=== PATIENT | male | born 1965 | race Caucasian/White ===

== ENCOUNTER 2016-12-14 22:27 | Inpatient (IN) | payer OTHER ==
[~2016-12-14] VITALS: Ht 175.3 cm; Wt 86.1 kg
--- NOTE | ~2016-12-14 | ECHO ---
Transthoracic Echocardiography Report (TTE) Demographics Patient Name NIESHA HERMAN Date of Study 12/15/2016 Patient Number [id number] Visit Number [id number] Date of 1965 Room Number G6312 Gender Male Number Age 51 year(s) Referring Mariana Herrera Experimental Mechanic Electrical Junior Santoro RDCS, Physician RVT Tiffanie ESCOBAR Physician Interpreting Mariana Herrera Inspector Rough Castings Physician Supervising Ordering Mariana Herrera MD/MLP Physician Nurse Stress Student Union Consultant Conclusions Contractility Score Summary Normal Left Ventricular contractility was noted. Summary The estimated left ventricular ejection fraction is 60%. Normal wall thickness,internal dimension and EF despite moderate hypokinesia involving the basal third of the inferior wall. Trivial mitral regurgitation by color Doppler. Trivial tricuspid regurgitation by color Doppler. Procedure Type of Study TTE procedure:2D Echocardiogram. Procedure Date Date: 12/15/2016 Start: 07:48 AM Study Location: Inpatient Portable Technical Quality: Adequate visualization Indications:NSTEMI. Appropriate Use Criteria: 9 Patient Status: Routine HR: 66 bpm BP: 165/94 mmHg Allergies - No known allergies. M-Mode/2D Measurements LV Diastolic Dimension: 4.75 cm LV Systolic Dimension: 3.01 cm LV Septum Diastolic: 1.04 cm LV PW Diastolic: 1.02 cm Cardiac Output: 6.01 l/min LA Dimension: 3 cm LVOT: 2 cm LVOT VTI: 29 cm RV Base: 3.25 cm LV Stroke volume: 91.06 ml RV Length: 6.66 cm TAPSE: 2.29 cm TDI-S': 12.9 cm/s Doppler Measurements AV Peak Velocity: 1.39 m/s MV Peak E-Wave: 0.85 m/s AV Peak Gradient: 7.73 mmHg MV Peak A-Wave: 0.76 m/s LVOT Peak Velocity: 1.41 m/s MV E/A Ratio: 1.12 TR Velocity:1.5 m/s TR Gradient:9 mmHg MV Deceleration Time: 158 msec Estimated RAP:8 mmHg PV Peak Velocity: 1.04 m/s Estimated RVSP: 17 mmHg PV Peak Gradient: 4.33 mmHg E' Septal Velocity: 0.07 m/s Estimated PASP: 17 mmHg E' Lateral Velocity: 0.1 m/s A' Septal Velocity: 0.11 m/s A' Lateral Velocity: 0.14 m/s Findings Left Ventricle Normal wall thickness,internal dimension and EF despite moderate hypokinesia involving the basal third of the inferior wall. Diastolic assessment reveals normal relaxation. Right Ventricle Normal right ventricle structure and function. Left Atrium Normal left atrial size. Right Atrium Normal right atrial size. Mitral Valve Trivial mitral regurgitation by color Doppler. Aortic Valve Normal aortic valve structure and function. Tricuspid Valve Trivial tricuspid regurgitation by color Doppler. Pulmonic Valve Normal pulmonic valve structure and function. Pericardial Effusion No evidence of pericardial effusion. Miscellaneous Visualized portions of the aortic root and ascending aorta appear normal in size. Pleural Effusion No evidence of pleural effusion. Contractility Score LV regional wall motion:(0-Non visualized 1-Normal 2-Hypokinesis 3-Akinesis 4-Dyskinesis 5-Aneurysm) Signature dtt: Sharon Peña dtd: 12/15/16 0748 Physician Self Edit
--- NOTE | ~2016-12-14 | DS ---
PATIENT'S NAME: NIESHA HERMAN [facility] AGE: 51 Y [address] ROOM: [address] [address] LOCATION: GPCU ADMIT DATE: 12/14/2016 Discharge Summary DISCHARGE DATE: 12/17/2016 FAMILY PHYSICIAN: Ceci Moreno PA-C ATTENDING PHYSICIAN: Sharon Peña DISCHARGE DIAGNOSES: 1. Gqb-[id number] elevation myocardial infarction with normal left ventricular ejection fraction, treated with a drug-eluting stent to 99% occluded right coronary artery. 2. Left ventricular end-diastolic pressure of 15 mmHg. 3. Minimal luminal irregularities involving left main, LAD, and left circumflex. 4. Hypertension. 5. Chronic tobacco abuse. 6. Elevated cholesterol. 7. Family history of coronary artery disease in a premature fashion. 8. Alcoholism. The patient is drinking 3 beers at least a day. 9. Migraine headaches. 10. History of pancreatitis about a year ago. DISCHARGE MEDICATIONS: 1. Dexilant 60 mg a day. 2. Lisinopril and hydrochlorothiazide 20/25 once a day. 3. Aspirin 81 mg a day. 4. Atorvastatin 80 mg a day. 5. Metoprolol 12.5 mg 3 times a day. 6. Nicotine patch 14 mg a day. 7. Brilinta 90 mg twice a day. RECOMMENDATIONS: 1. Low-fat, low-cholesterol diet explained to the patient. 2. Regular exercise program including cardiac rehab explained to the patient. 3. Completely to stopping smoking with counseling given. COURSE IN THE HOSPITAL: The patient developed chest tightness, radiating to the back and into the neck and left side of the jaw, along with headache and sweating; and no ST changes were noted, but his enzymes were elevated. The patient was taken urgently to the labor representative after maintaining him pain-free when he was in the hospital, and a drug-eluting stent was placed. The patient's postprocedural course was unremarkable. The plan now is to have him completely stop smoking, control his blood pressure better, and have him on all appropriate therapy including DAPT for one whole year. He will be followed up in 2 weeks in the office as an outpatient. PATIENT'S NAME: NIESHA HERMAN [facility] AGE: 51 Y [address] ROOM: [address] [place] [id number] [facility] ADMIT DATE: 12/14/2016 Discharge Summary DISCHARGE DATE: 12/17/2016 FAMILY PHYSICIAN: Ceci Moreno PA-C ATTENDING PHYSICIAN: Sharon Peña MD SADA SCHILLING/annie /[id number] d: 12/26/16 2303 t: 01/04/17 1029, DISCHARGE SUMMARY
--- NOTE | ~2016-12-14 | CATH ---
Cardiac Diagnostic + PCI Report Demographics Patient Name BATSHEVA CAICEDO Gender Male Date of 1965 Age 51 year(s) Patient Number [id number] Date of Study 12/15/2016 Visit Number [id number] Room Number G6312 [place] [id number] Ht 175.26 cm Wt 83.01 kg Referring Mariana Primary Physician Physician Sharon JACKSON Performing Mariana Secondary Physician Physician Sharon JACKSON Diagnostic Mariana Assisting Physician Physician Sharon JACKSON Interventional Mariana Physician Search Strategist Physician Sharon JACKSON Findings and Conclusions Diagnostic Findings and Conclusion 99% Stenosis of RCA Diagnostic Recommendations PCI of RCA Interventional Findings and Conclusion LVEDP 15 no gradiant Successful PCI of RCA. balloon and KELL. 99% with 1-2 NAYELY flow to 0% with NAYELY 3 Interventional Recommendations Dual anti-platelet therapy for one year, aggressive secondary prevention means. Procedure Description The patient was brought to the diagnostic cardiac catheterization-EP laboratory in the fasting, non-sedated state. Informed consent was obtained in the written and verbal form after the risks and benefits were explained. The patient had no further questions and agreed to proceed. The planned puncture-incision site(s) were shaved and prepped with ChloraPrep and draped in the usual sterile manner. Conscious sedation, supplemental oxygen, and pain control medications were delivered by a registered nurse under physician guidance. Surface ECG rhythm, blood pressure measurement, and pulse oximetry were monitored throughout the procedure. Arterial access. The access site was infiltrated with lidocaine. The vessel was entered with the Seldinger technique. A sheath was advanced into the vessel and used for catheter placement. Selective left coronary angiography. A catheter was advanced into the left coronary vessel ostium under Fluoroscopic guidance. Contrast was injected by hand. Images were obtained in multiple projections. Selective right coronary angiography. A catheter was advanced into the right coronary vessel ostium under fluoroscopic guidance. Contrast was injected by hand. Images were obtained in multiple projections. Left heart catheterization. A catheter was advanced across the aortic valve to the left ventricle under fluoroscopic guidance. Resting hemodynamics were obtained. Arterial artery hemostasis was achieved. The patient was transferred to a regular nursing floor via cart accompanied by a nurse. The patient left the laboratory in stable condition. Diagnostic Cath Status: Urgent Interventional Cath Status: Urgent Procedure Procedure Type Diagnostic procedure:Angiography:, Coronary Angios w/C PCI procedure:Drug Eluting Coronary Stent:, RCA, Thrombectomy-Mechanical , Interventions: Indications: Non-ST elevation WA. The procedure was explained in detail to the patient. Risks, complications and alternative treatments were reviewed. Written consent was obtained. Medications Reviewed with Patient prior to Procedure. Angiographic Findings Dominance: Right Cardiac Arteries and Lesion Findings LMCA: Abnormal.Luminal irregularities LAD: Abnormal.Type 3 luminal irregularities LCx: Abnormal.luminal irregularities RCA: Lesion on Prox RCA: 99% stenosis reduced to 0%. Pre procedure NAYELY I flow was noted. Post Procedure NAYELY III flow was present. The lesion was diagnosed as a high risk lesion.Culprit lesion. Devices used - Luge Wire .014 x 182. Number of passes: 1. - [employer] Aspiration Catheter. Number of passes: 1. - Emerge Balloon 2.5 x 15. 1 inflation(s) to a max pressure of: 10 doreen. - Promus Premier 2.75 x 24 Stent. 1 inflation(s) to a max pressure of: 18 doreen. - Emerge Balloon 3.25 x 20. 1 inflation(s) to a max pressure of: 12 doreen. Coronary Tree Procedure Data Procedure Date Date: 12/15/2016Start: 12:35 PMEnd: 01:49 PM Entry Locations - Retrograde Percutaneous access was performed through the Right Femoral artery (Primary location). A 6 Fr sheath was inserted. Hemostasis was successfully obtained using Perclose A-T (Modria). Closure Comments: manual pressure by Wilton Hidalgo Procedure Medications Order and Administration + + + + + !Time !Medication !Dosage !Route ! + + + + + !12/15/2016 12:35 PM!Versed !1 mg !I.V. ! + + + + + !12/15/2016 12:35 PM!Fentanyl !50 mcg ! ! + + + + + !12/15/2016 12:41 PM!0.9% NaCl !100 ml !I.V. drip ! + + + + + !12/15/2016 12:42 PM!Versed !1 mg !I.V. ! + + + + + !12/15/2016 12:48 PM!Heparin (ACC_3) !7500 units!I.V. ! + + + + + !12/15/2016 12:50 PM!Versed !1 mg !I.V. ! + + + + + !12/15/2016 12:58 PM!Heparin (ACC_3) !2000 units!I.V. ! + + + + + !12/15/2016 12:59 PM!Fentanyl !50 mcg ! ! + + + + + !12/15/2016 01:12 PM!Heparin (ACC_3) ! !I.V. ! + + + + + !12/15/2016 01:14 PM!Nitroglycerin !100 mcg !I.C. ! + + + + + !12/15/2016 01:22 PM!Brilinta (Ticagrelor) (ACC_20)!180 mg !P.O. ! + + + + + Devices Used - A6 Fr. BS JR 4 Diag. Catheterwas used for:Right coronary angiography. - A6 Fr. BS JL 4 Diag. Catheterwas used for:Left coronary angiography. - A6 Fr. JR4 Guide Catheterwas used for:RCA Intervention. Contrast Material - Isovue [id number] ml Fluoroscopy Time: Diagnostic: 11:24 minutes. Total: 11:24 minutes. Fluoroscopy Dose: Diagnostic: 1373 mGy. Total: 1373 mGy. Estimated Blood Loss: [address] [facility] PCI Information PCI Indication:PCI for high risk Non-STEMI or unstable angina. Medical History Allergies - No known allergies. Risk Factors The patient risk factors include:hypercholesterolemia, hypertension, diabetes mellitus, dyslipidemia and Current/Recent(w/in 1 year) tobacco use. Admission Data Admission Date: 12/14/2016 Admission Time: 11:18 PM Arrival Date: 12/15/2016 Arrival Time: 12:00 AM Admit Source: Transfer acute care facility Insurance Payors: Private health insurance. Admission Medications + +------+------+ + + + + !Medication !Dosage!Times !Last !Last !Administered !Comments ! ! ! !Per !Delivery !Delivery ! ! ! ! ! !Day !Date !Time ! ! ! + +------+------+ + + + + !Aspirin ! ! !12/08/2016 !12:00 AM !Yes ! ! !(any) ! ! ! ! ! ! ! + +------+------+ + + + + !Statin ! ! !12/15/2016 !12:00 AM !Yes ! ! !(any) ! ! ! ! ! ! ! + +------+------+ + + + + !Beta ! ! !12/15/2016 !12:00 AM !Yes ! ! !Ce ! ! ! ! ! ! ! !(any) ! ! ! ! ! ! ! + +------+------+ + + + + Clinical Evaluation Leading to Procedure Diagnosed on 12/15/2016 12:00 PM. - The patient's CAD presentation was assessed as: Non-STEMI. - Anti-anginal medications were prescribed during the past two weeks. The medication is: Beta Blockers. Hemodynamics Condition: Rest O2 Consumption: Estimated: 233.51Heart Rate: 63 bpm Pressures (mmHg) +-----+ + !Site !Pressure ! +-----+ + !LV !142/7 ,15 ! +-----+ + !LV !155/4 ,11 ! +-----+ + !AO !166/99 (131) ! +-----+ + !LV !161/5 ,13 ! +-----+ + Valve Gradients and Areas + +---------+---------+---------+ +---------+ + !Valve !Peak !Mean !Area !Index !Flow !Source ! + +---------+---------+---------+ +---------+ + !Aortic !0 !0 ! ! ! ! ! + +---------+---------+---------+ +---------+ + !Aortic !0 !0 ! ! ! ! ! + +---------+---------+---------+ +---------+ + Shunts Oxygen Values O2 Capacity 179.52 O2 Consumption 233.51 Signatures dtt: Sharon Peña dtd: 12/15/16 1235 Physician Self Edit
--- NOTE | ~2016-12-14 | HP ---
PATIENT'S NAME: NIESHA MAGAÑA [facility] AGE: 51 Y [address] ROOM: G6312 [place], [place] [address] [facility] ADMIT DATE: 12/14/2016 History & Physical DISCHARGE DATE: FAMILY PHYSICIAN: Ceci Moreno PA-C ATTENDING PHYSICIAN: Sharon Peña DATE OF SERVICE: HISTORY OF PRESENT ILLNESS: Mr. Magaña is a 51-year-old male patient who presented to the emergency room in [place] with chest pains. The patient states that he was in his usual state of health about 6 weeks earlier. Since then, he has noticed problems with tightness in the front of his chest, radiating through to the back, going up the side of his neck, left side of his jaw, and headache with some sweating, nausea, and shortness of breath. They occurred mostly in relation to stressful situations and usually would last about 10 minutes or so and resolves spontaneously. Today, he woke up with that and has been noticing that pain intermittently. He went to work, and 3 hours later came back home and then slept all day long, and when he woke up, he had still some chest pains going through to his back, so came to the emergency room. One nitroglycerin sublingually seemed to resolve the pain, and he is now on a combination of aspirin, heparin, Integrilin, and completely pain-free. His EKG in [place] shows no ST-segment changes at all. He does have some Q-waves in the inferior leads. His EKG here shows about 0.[address] elevation involving the inferior leads, but he is completely pain-free at this time. He has no history of shortness of breath. He has been in functional class II with no paroxysmal nocturnal dyspnea or orthopnea. He would become short of breath, and he is having the chest pain, though. He denies having any lightheadedness, dizziness, presyncope, or syncope. He denies any paroxysmal or nocturnal dyspnea or orthopnea. The patient has a history of some ankle swelling intermittently and occasional palpitations such as a racing heartbeat once in a while. These tend to be very brief. The patient has a history of hypertension, elevated cholesterol, ongoing tobaccoism, and family history of premature coronary artery disease in his dad, who had an NJ at age of 62. He denies diabetes. He has no history of NJ until now. There is no history of rheumatic fever, heart murmur, heart failure, dilated or enlarged heart, or any diagnosed cardiac arrhythmias. MEDICATIONS: 1. Lisinopril hydrochlorothiazide 20/25 once a day. PATIENT'S NAME: NIESHA MAGAÑA [facility] AGE: 51 Y [address] ROOM: [facility] [place] [address] [facility] ADMIT DATE: 12/14/2016 History & Physical DISCHARGE DATE: FAMILY PHYSICIAN: Ceci Moreno PA-C ATTENDING PHYSICIAN: Sharon Peña 2. Dexilant once a day. 3. Ibuprofen p.r.n. 4. Tylenol p.r.n. ALLERGIES: NO KNOWN DRUG ALLERGIES. PAST MEDICAL HISTORY: 1. Two back surgeries. 2. One knee surgery. 3. Fracture of the ribs. 4. Fracture of an ankle. 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 He drinks about 3 beers at least a day, but can be as many as 12 beers. His appetite has been variable. He has lost about 20-25 pounds in the last year somewhat intentionally. His sleep is fair. FAMILY HISTORY: Father had an NJ at age of 62. REVIEW OF SYSTEMS: A 12-point review of systems revealed the following positives. 1. Migraine headaches. 2. Corrective lenses. 3. Sinus problems. 4. History of pancreatitis about a year ago. PHYSICAL EXAMINATION: VITAL SIGNS: On examination, his blood pressure is 148/80, heart rate is in the 70s and regular, respirations 18, afebrile. HEENT: Normal. NECK: Supple. No JVD, thyromegaly, lymphadenopathy, or carotid bruit. CARDIOVASCULAR: PMI is not well located. First and second heart sounds are regular. There are no added sounds or murmurs. CHEST: Clear to auscultation. ABDOMEN: Soft and nontender. Bowel sounds are normally present. EXTREMITIES: Reveal no edema. CENTRAL NERVOUS SYSTEM: Intact. ASSESSMENT: A 51-year-old male patient with a history of hypertension, elevated cholesterol, ongoing tobaccoism, and family history of premature coronary artery disease, who has been having intermittent chest pains for 6 weeks. PATIENT'S NAME: NIESHA MAGAÑA [facility] AGE: 51 Y [address] ROOM: [facility] [place] [address] LOCATION: [facility] ADMIT DATE: 12/14/2016 History & Physical DISCHARGE DATE: FAMILY PHYSICIAN: Ceci Moreno PA-C ATTENDING PHYSICIAN: Sharon Peña Today, he has had more frequent prolonged chest pains, and he has EKG changes even though he does not have ST elevation. Currently, he is pain-free, and his troponins are significantly elevated. He is on heparin, aspirin, and Integrilin. RECOMMENDATIONS: We will continue all 3 at this time and also add a little beta blockers as well as atorvastatin. Keep him pain-free. Keep him n.p.o. after his clear liquid breakfast in the morning and consider doing cardiac catheterization sometime in the middle of tomorrow morning or around noon or so. In the meantime, he will get an echocardiogram done as well. MD SADA SCHILLING/annie /[id number] D: [id number] T: [id number] HISTORY & PHYSICAL
[2016-12-14] MEDS ORDERED: DEXILANT60 MG PO (23:33)
[2016-12-14] MEDS ORDERED: LISINOPRIL-HCT1 EAC2 PO (23:35)
--- NOTE | 2016-12-15 00:46 | NUR ---
THE PATIENT HAS BEEN HAVING CHEST PAIN ON AND OFF FOR THE PAST 1.5 MONTHS. ON 12/14 THE PAIN BECAME WORSE AND HE ALSO EXPERIENCED SOB UPON EXERTION, NAUSEA AND PAIN RADIATING TO THE LEFT SHOULDER. HE THEN WENT TO THER ER AT [facility] IN [facility] WHERE HIS TROPONIN WAS 19.271 AND FOUND TO BE EXPERIENCING A NON-STEMI. HE WAS TRANFERED HERE VIA AMBULANCE. SEEN BY DR. Mukherjee IN ER. HE ARRIVED ON PCU AT 2330. FLUIDS INFUSING: HEPARIN AT 1000 UNITS/HR. INTEGRELIN 2 MCG/KG/MIN, NITRO 5 MCG/MIN, NS AT 42 ML/HR. HE DID HAVE A HEADACHE BUT DENIED ANY CHEST PAIN. HX: HTN, DAILY ETOH, 37 YEAR SMOKER, + MARIJUANNA. NKA
[2016-12-15 04:33] LABS: BASOPHIL % 0.2 %; EOSINOPHIL # 0.1 K/uL (0.0-0.5); EOSINOPHIL % 0.7 %; HEMATOCRIT 38.5 % (37.0-53.0); HEMOGLOBIN 13.2 g/dL (12.0-17.0); IMMATURE GRANULOCYTE # 0.1 K/uL (0.0-0.3); IMMATURE GRANULOCYTE % 0.4 %; LYMPHOCYTE # 1.8 K/uL (0.8-4.0); LYMPHOCYTE % 11.2 %; MCH 32.8 pg (27.0-34.0); MCHC 34.3 gm/dL (32.0-36.5); MCV 95.5 fl (83.0-98.0); MONOCYTE % 6.2 %; MPV 10.1 fl (9.4-12.4); NEUTROPHIL # (ANC) 13.2 K/uL (1.4-9.0); NEUTROPHIL % 81.3 %; NRBC % 0 /100WBC (0-0.00); PLATELET COUNT 324 K/uL (150-450); RBC 4.03 M/uL (4.00-6.00); RDW-CV 14.6 % (11.9-14.6); WBC 16.2 K/uL (4.0-11.0)
--- NOTE | 2016-12-15 05:20 | NUR ---
Significant Event: A/O X 3, COOPERATIVE WITH CARES. AMBULATES STAND BY ASSIST. FIRST SBP 217, HAS NOW DROPPED INTO THE 120'S. HR HAS BEEN IN THE 50'S WHILE SLEEPING, 60'S WHILE AWAKE, DID HOLD 0500 LOPRESSOR. ALL OTHER VSS ON RA. NITRO AT 5 MCG/MIN, INTEGRILIN AT 2 MCG/KG/MIN AND HEPARIN AT 1100 UNITS/HR, NEXT PTT-HP 1100. HAS DENIED CHEST PAIN THE ENTIRE EVENING AND NO SHORTNESS OF BREATH NOTED. 1000 MG TYLENOL GIVEN AT 0010 FOR HEADACHE. HE BECAME VERY EXHAUSTED WHEN ARRIVED ON FLOOR, HAS BEEN SLEEPING WELL. DIET IS CARDIAC BUT WILL BE NPO AT 0600. POSSIBLE CATH TODAY. DR WALKER WILL ADDRESS HOME MEDS TODAY. 8 Follow up:
--- NOTE | 2016-12-15 11:24 | NUR ---
A - PT SCREENED D/T MST. PER H&P, DAILY EtOH, VARIABLE APPETITE, SOMEWHAT INTENTIONAL WEIGHT LOSS OF 20-25# IN A YEAR. HT: 175.26 CM, WT: 189#, BMI: 28.0, IBW: 72.7 KG, %IBW: 118% PT REPORTED NEVER WEIGH MORE THAN 180#. APPETITE DEPENDS ON ACTIVITY LEVEL TO HAVE CATH TODAY AFTERNOON PER PT. LABS: PROBNP 1935 MEDS REVIEWED. DIET: NPO FOR PROCEDURE. EST NEEDS: [id number] KCAL (25-30 KCAL/KG IBW), 73-88 GRAMS PROTEIN (1-1.2 GRAMS/KG IBW), FLUID NEEDS: 1ML/KCAL D - INADEQUATE ORAL INTAKE AT TIMES RELATED TO ALTERATION IN APPETITE SECONDARY TO EXCESSIVE ALCOHOL INTAKE EVIDENCED BY 20-25# WEIGHT LOSS IN A YEAR. I - PT AGREED TO TRY ENSURE ENLIVE ONCE DAILY. M/E - GOAL: PT WILL BE ABLE TO TOLERATE >65% OF MEALS ONCE DIET ADVANCES IN 4-6 DAYS.
--- NOTE | 2016-12-15 14:41 | NUR ---
Introduced self and role of care management to pt and his . THey live down in [place] and he is working. AT this time plans on home and denies needs. Just waiting to have heart cath.
--- NOTE | 2016-12-15 16:40 | NUR ---
Significant Event: A/O X3. HEART CATH VIA RIGHT GROIN, GAUZE & TRANSPARENT DRESSING INTACT, NO DRAINAGE. STENT TO RCA, 99% OCCLUDED. BEDREST UNTIL 1800. AMBULATE @ 1999. INTEGRILIN GTT OFF @ 1999. CBC @ 1800, IF PLT <[address] WALKER. SBP SLIGHLTY ELEVATED, RESTARTED NITRO GTT @ 5 MCG/MIN TO KEEP SBP <160. PIV TO RIGHT HAND WITH NS @ 100 ML/HR [id number], NITRO AND INTEGRILIN ALSO INFUSING HERE. SL TO RIGHT AC. Follow up: POSSIBLE DC TOMORROW.
[2016-12-15 18:51] LABS: BASOPHIL % 0.4 %; EOSINOPHIL # 0.2 K/uL (0.0-0.5); EOSINOPHIL % 1.5 %; HEMATOCRIT 39.6 % (37.0-53.0); HEMOGLOBIN 13.2 g/dL (12.0-17.0); IMMATURE GRANULOCYTE # 0.1 K/uL (0.0-0.3); IMMATURE GRANULOCYTE % 0.5 %; LYMPHOCYTE # 1.8 K/uL (0.8-4.0); LYMPHOCYTE % 17.1 %; MCH 32.4 pg (27.0-34.0); MCHC 33.3 gm/dL (32.0-36.5); MCV 97.1 fl (83.0-98.0); MONOCYTE % 9.3 %; MPV 10.4 fl (9.4-12.4); NEUTROPHIL # (ANC) 7.5 K/uL (1.4-9.0); NEUTROPHIL % 71.2 %; NRBC % 0 /100WBC (0-0.00); RBC 4.08 M/uL (4.00-6.00); WBC 10.5 K/uL (4.0-11.0)
[2016-12-15 18:53] LABS: PLATELET COUNT 310 K/uL (150-450)
[2016-12-16 04:50] LABS: BASOPHIL % 0.4 %; EOSINOPHIL # 0.2 K/uL (0.0-0.5); EOSINOPHIL % 1.8 %; HEMATOCRIT 37.1 % (37.0-53.0); HEMOGLOBIN 12.6 g/dL (12.0-17.0); IMMATURE GRANULOCYTE % 0.4 %; LYMPHOCYTE # 1.6 K/uL (0.8-4.0); LYMPHOCYTE % 16.3 %; MCH 32.6 pg (27.0-34.0); MCV 96.1 fl (83.0-98.0); MONOCYTE # 0.9 K/uL (0.0-1.0); MONOCYTE % 9.7 %; MPV 10.1 fl (9.4-12.4); NEUTROPHIL # (ANC) 6.9 K/uL (1.4-9.0); NEUTROPHIL % 71.4 %; NRBC % 0 /100WBC (0-0.00); PLATELET COUNT 291 K/uL (150-450); RBC 3.86 M/uL (4.00-6.00); WBC 9.6 K/uL (4.0-11.0)
[2016-12-16 05:05] LABS: ALBUMIN 3.1 gm/dL (3.5-5.0); ALK PHOS 60 IU/L (33-138); ALT 53 IU/L (12-78); ANION GAP 9.7 (10.0-19.0); AST 108 IU/L (10-40); BLOOD UREA NITROGEN 14 mg/dL (6-24); CALCIUM 8.1 mg/dL (8.5-10.5); CHLORIDE 110 mMol/L (96-110); CO2 28 mMol/L (22-32); CREATININE 0.9 mg/dL (0.6-1.3); ESTIMATED GFR (MDRD EQUATION) > 60; POTASSIUM 3.7 mMol/L (3.7-5.1); SODIUM 144 mMol/L (135-145); TOTAL BILIRUBIN 0.8 mg/dL (0.0-1.5)
--- NOTE | 2016-12-16 05:33 | NUR ---
Significant Event: Patient alert and oriented. UP ad sophie. Denies pain. VSS on room air. Right groin soft, tender and ecchymotic. Nitro off at 1999. Ambulated in [place]. Rested throughout shift. Pleasant and cooperative with cares. Follow up: possible discharge today, continue to monitor
--- NOTE | 2016-12-16 10:14 | NUR ---
CONSULT RECEIVED S/P HEART CATH. RD SPOKE W/ PT ON 12/15. WILL CONTINUE TO FOLLOW AND ASSIST NEEDED.
--- NOTE | 2016-12-16 18:45 | NUR ---
PATIENT HAS DENIED CHEST PAIN THROUGHOUT THE DAY. AMBULATED IN [place] WITH NO COMPLAINTS OF CHEST PAIN OR SHORTNESS OF BREATH. RT GROIN IN SOFT OPEN TO AIR SOME ECCHYMOSIS PRESENT.
--- NOTE | 2016-12-17 04:18 | NUR ---
Significant events: Pt A/Ox3. VSS. No complaints of pain. On RA. Up ad sophie. Saline locked. R) groin with some ecchymosis, no hematoma. Slept well, cooperative with cares.
[2016-12-17] MEDS ORDERED: ASPIRIN (CHILDR81 MG PO (10:02)
[2016-12-17] MEDS ORDERED: LIPITOR80 MG PO (10:04)
[2016-12-17] MEDS ORDERED: LOPRESSOR25 MG PO (10:07)
[2016-12-17] MEDS ORDERED: NICOTINE PATCH1 EAC5 TRANS (10:10)
[2016-12-17] MEDS ORDERED: BRILINTA90 MG PO (10:12)
== END 2016-12-17 12:00 | disposition disaster alternative care site (69) | DRG 247 ==
LOC: GMED 22:27 → GPCU 23:18
PROVIDERS: ADMIT Internal Medicine Interventional Cardiology
DX: I21.4 Non-ST elevation (NSTEMI) myocardial infarction (principal); I10 Essential (primary) hypertension; E78.5 Hyperlipidemia, unspecified; I25.10 Atherosclerotic heart disease of native coronary artery without angina pectoris; F17.200 Nicotine dependence, unspecified, uncomplicated; Z82.49 Family history of ischemic heart disease and other diseases of the circulatory system; F10.20 Alcohol dependence, uncomplicated; G43.909 Migraine, unspecified, not intractable, without status migrainosus
CPT/HCPCS: C1725; C1757; C1760; C1769; C1874; C1887; C9600; J1327; J1644; J2250; J3010